=== PATIENT | female | born 1955 | race African-American/Black ===

== ENCOUNTER 2018-09-06 10:37 | Emergency (ER) | payer OTHER ==
[~2018-09-06] VITALS: Ht 165.1 cm; Wt 70.3 kg
[2018-09-06 10:37] VITALS: BP 126/74
[~2018-09-06 10:37] MED LIST: ADVAIR HFA 230M12 GM IH; IBUPROFEN 600600 M1 PO; NORCO 5-325 TA1 EACH PO; VENTOLIN HFA 1818 GM INH
[2018-09-06] MEDS ORDERED: CLINDAMYCIN HC300 MG PO (11:31)
[2018-09-06] MEDS ORDERED: TRAMADOL 50 MG50 MG PO (11:31)
[2018-09-06] MEDS ORDERED: TRIAMCINOLONE A15 G3 TOP (11:31)
== END 2018-09-06 11:38 | disposition home or self-care (01) ==
LOC: ER 10:37
DX: L03.211 Cellulitis of face (principal); L25.9 Unspecified contact dermatitis, unspecified cause; K02.9 Dental caries, unspecified; J45.909 Unspecified asthma, uncomplicated; Z91.041 Radiographic dye allergy status

== ENCOUNTER 2018-11-16 14:29 | Emergency (ER) | payer OTHER ==
[~2018-11-16] VITALS: Ht 165.1 cm; Wt 69.0 kg
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
[~2018-11-16 14:29] MED LIST changes: +CLINDAMYCIN HC300 MG PO; +TRAMADOL 50 MG50 MG PO; +TRIAMCINOLONE A15 G3 TOP
[2018-11-16 16:09] LABS: ABSOLUTE NEUTROPHILS 4.3 thou/uL (1.4-8.2); BASOPHILS 1.1 % (0.0-2.0); EOSINOPHILS 2.6 % (0.0-3.0); HEMATOCRIT 41.5 % (37.0-47.0); HEMOGLOBIN 13.7 gm/dL (12.0-15.0); LYMPHOCYTES 31.5 % (24.0-44.0); MCH 31.6 pg (26.0-34.0); MCHC 33.1 g/dL (28.0-37.0); MCV 95.3 fL (80.0-100.0); MONOCYTES 6.5 % (1.0-8.0); PLATELET COUNT 280 thou/uL (150-400); POLYS 58.3 % (36.0-66.0); RBC 4.35 mil/uL (4.20-5.00); RDW 14.6 % (10.5-14.5); WBC 7.4 thou/uL (4.0-11.0)
[2018-11-16 16:17] VITALS: BP 163/76
[2018-11-16 16:17] LABS: ANION GAP 9 mmol/L (7-16); BUN 14 mg/dL (7-18); CALCIUM 9.8 mg/dL (8.5-10.1); CHLORIDE 106 mmol/L (98-107); CO2 26 mmol/L (21-32); CREATININE 1.1 mg/dL (0.6-1.0); GLUCOSE 95 mg/dL (74-106); POTASSIUM 3.9 mmol/L (3.5-5.1); SODIUM 141 mmol/L (136-145)
[2018-11-16 16:26] LABS: LIPASE 96 U/L (73-393); TROPONIN-I <0.06 ng/mL (<0.06)
--- NOTE | 2018-11-18 15:04 | EKG ---
[address] [address] ELECTROCARDIOGRAM REPORT Name: WALKER CORTEZ Room #: DEP [facility]#: [id number] Admission: 11/16/18 Attend Phys: Discharge: 11/16/18 Date of : 53 Report #: [id number] THIS REPORT FOR: //name// [facility] ED Test Date: 2018-11-16 Test Time: 14:55:43 Pat Name: WALKER CORTEZ Department: Room: Gender: F Electronics Computer Mechanic: OPAL : 1955 Requested By: Martell Ricardo Order Number: [id number] MD: Arik Espinoza Measurements Intervals [place] Rate: 62 P: 78 CT: 123 QRS: 70 QRSD: 82 T: 72 QT: 426 QTc: 433 Interpretive Statements Sinus rhythm RSR' in V1 or V2, probably normal variant Compared to ECG 08/17/2013 09:17:50 RSR' in V1 or V2 now present Sinus bradycardia no longer present Electronically Signed On 11-18-2018 15:04:40 CDT by Arik Espinoza [email or web address] <ELECTRONICALLY SIGNED> By: Arik Espinoza MD 11/18/18 1504 1455 1455 Arik Espinoza MD /EPI
== END 2018-11-16 16:30 | disposition home or self-care (01) ==
LOC: ER 14:29
PROVIDERS: Emergency Medicine
DX: M25.562 Pain in left knee (principal); M54.2 Cervicalgia; M54.6 Pain in thoracic spine; J45.909 Unspecified asthma, uncomplicated; Z91.041 Radiographic dye allergy status; V89.2XXA Person injured in unspecified motor-vehicle accident, traffic, initial encounter; Y92.89 Other specified places as the place of occurrence of the external cause; Y93.89 Activity, other specified; Y99.8 Other external cause status